=== PATIENT | male | born 1970 | race Caucasian/White ===

== ENCOUNTER 2023-10-27 15:21 | Emergency (ER) | payer MEDICAID ==
[~2023-10-27] VITALS: Ht 180.3 cm; Wt 90.7 kg
[2023-10-27] MEDS ORDERED: KETOROLAC TROMETHAMINE 15 MG/ML VIAL ONE (16:37)
[2023-10-27] MEDS: KETOROLAC TROMETHAMINE 15 MG/ML VIAL IV ONE (16:40)
[2023-10-27 16:44] LABS: BASOPHILS % (AUTO) 0.2 % (0.0-2.0); EOSINOPHILS # (AUTO) 0.3 K/uL (0.0-0.7); EOSINOPHILS % (AUTO) 4.4 % (0.0-6.0); HEMATOCRIT 47 % (39-51); HEMOGLOBIN 15.9 g/dL (13.5-17.5); LYMPHOCYTES # (AUTO) 1.7 K/uL (0.8-4.8); MEAN CORPUSCULAR HEMOGLOBIN 30 PG (26.0-33.0); MEAN CORPUSCULAR HGB CONC 34 g/dl (31.0-36.0); MEAN CORPUSCULAR VOLUME 89 fL (80-96); MONOCYTES # (AUTO) 1.3 K/uL (0.1-1.30); NEUTROPHILS # (AUTO) 4.2 K/uL (1.8-8.9); NEUTROPHILS % (AUTO) 55.9 % (43.0-81.0); PLATELET COUNT (AUTO) 227 K/uL (150-450); RED BLOOD CELL COUNT(AUTO) 5.27 MIL/uL (4.5-6.0); RED CELL DISTRIBUTION WIDTH 14.6 % (11.5-15.0); WHITE BLOOD COUNT (AUTO) 7.5 K/uL (4.3-11.0)
[2023-10-27 16:48] LABS: LYMPHOCYTES % (AUTO) 25.5 % (20.0-44.0)
[2023-10-27 16:58] LABS: ALBUMIN 2.3 g/dL (3.4-5.0); BILIRUBIN,DIRECT 0.1 mg/dL (0.0-0.2); BILIRUBIN,TOTAL 0.3 mg/dL (0.2-1.0); CREATININE 0.6 mg/dL (0.6-1.3); TOTAL PROTEIN, SERUM 4.2 g/dL (6.4-8.2)
[2023-10-27 17:08] LABS: POTASSIUM 2.8 mmol/L (3.5-5.1)
[2023-10-27 17:09] LABS: CALCIUM, SERUM 5.6 mg/dL (8.5-10.1)
[2023-10-27] MEDS ORDERED: POTASSIUM CHLORIDE 20 MEQ POWDER PACKET ONE (17:28)
[2023-10-27] MEDS ORDERED: CALCIUM GLUCONATE 500 MG TABLET PO SCH (17:30)
[2023-10-27] MEDS: Calcium Gluconate 1GM/10ML 4.65 MEQ in IV NS 0.9% 100 ML IV ONE (17:50)
[2023-10-27] MEDS: POTASSIUM CHLORIDE 20 MEQ POWDER PACKET PO ONE (18:20)
[2023-10-27 19:06] VITALS: BP 120/71; TEMP 98.4; O2SAT 100
== END 2023-10-27 19:07 | disposition home or self-care (01) ==
LOC: ER 15:23
DX: R10.30 Lower abdominal pain, unspecified (principal); I10 Essential (primary) hypertension; E78.5 Hyperlipidemia, unspecified; E03.9 Hypothyroidism, unspecified
CPT/HCPCS: 99285; 96365; 96375; 74176; 85025; 80048; 83690; 80076; 36415; J0610; J7030; A4223; J1885